=== PATIENT | male | born 1990 | race Caucasian/White ===

== ENCOUNTER 2017-01-05 22:45 | Observation (INO) | payer BC ==
[~2017-01-05] VITALS: Ht 182.1 cm; Wt 106.5 kg
[2017-01-05 22:45] VITALS: BP 155/88; PULSE 80; RESP 20; TEMP 98.2; O2SAT 99
--- NOTE | 2017-01-05 22:58 | PD ---
HPI Chief Complaint: Allergic/Adverse Reaction Time Seen by Provider: 22:49 Travel History International Travel<30 days: No Contact w/Intl Traveler<30days: No History of Present Illness HPI This is a 26-year-old male who presents to the emergency department having eaten peanuts and feeling like he was having an allergic reaction. Patient ate a chocolate that he didn't realize contained peanuts. Immediately after he started to feel like he had some labored breathing and his palms and feet were itching. He took 100 mg of Benadryl and also took some NyQuil because the Benadryl was . Currently he still feels like he's having some trouble getting his breath out and he feels very anxious. He denies any lightheadedness , abdominal pain, diarrhea or rash. [facility] Social History Tobacco Use: No Substance Use: Yes (marijuana) Allergies-Medications (Allergen,Severity, Reaction): Coded Allergies: Cashew (Verified Allergy, Severe, Nausea/Vomiting, 01/05/17) PEANUTS (Verified Allergy, Severe, 01/05/17) Pecan (Verified Allergy, Severe, Nausea/Vomiting, 01/05/17) Holcomb (Verified Allergy, Severe, Nausea/Vomiting, 01/05/17) Uncoded Allergies: CAT SALIVA (Allergy, Severe, RASH, 01/05/17) DOG SALIVA (Allergy, Severe, RASH, 01/05/17) MACADAMIA NUTS (Allergy, Severe, Nausea/Vomiting, 01/05/17) Reported Meds & Prescriptions Reported Meds & Active Scripts Active Reported Epipen 2-Steven Inj (Epinephrine) 0.3 Mg/0.3 Ml Pfpen 0.3 Mg IM ONCE PRN Valium (Diazepam) 5 Mg Tab 5 Mg PO DAILY PRN Pataday Opth 0.2% (Olopatadine HCl) 0.2 % Drops 1 Drop EACH EYE DAILY PRN Vitamin D (Cholecalciferol) 1,000 Unit Tab 1,000 Units PO DAILY Multi-Vitamin Daily (Multiple Vitamin) 1 Tab Tab 1 Tab PO DAILY Melatonin 10 Mg Tab 10 Mg PO HS PRN Aleve Arthritis (Naproxen Sodium) 220 Mg Tab 440 Mg PO EVERY OTHER DAY Levothyroxine (Levothyroxine Sodium) 112 Mcg Tab 112 Mcg PO DAILY Review of Systems Except as stated in HPI: all other systems reviewed are Neg Physical Exam Narrative GENERAL:Well appearing, no acute distress SKIN: Focused skin assessment warm and dry. HEAD: Atraumatic. Normocephalic. EYES: Pupils equal and round. No injection or drainage. ENT: Moist mucous membranes NECK: Trachea midline. CARDIOVASCULAR: Regular rate and rhythm. No murmur appreciated. RESPIRATORY: Clear to auscultation. Breath sounds equal bilaterally. GASTROINTESTINAL: Abdomen soft, non-tender, nondistended. MUSCULOSKELETAL: No obvious deformities. NEUROLOGICAL: Awake and alert. No obvious cranial nerve deficits. Moving all extremities. PSYCHIATRIC: Appropriate mood and affect; insight and judgment normal. Data Data Last Documented VS Vital Signs Date Time Temp Pulse Resp B/P Pulse Ox O2 Delivery O2 Flow Rate FiO2 01/05/17 23:45 82 18 136/74 98 Room Air 01/05/17 22:45 98.2 Orders Methylprednisolone So Succ Inj (Solumedr (01/05/17 23:00) Famotidine Inj (Pepcid Inj) (01/05/17 23:00) Sodium Chlor 0.9% 1000 Ml Inj (Ns 1000 M (01/05/17 23:00) Diphenhydramine Inj (Benadryl Inj) (01/06/17 01:30) Admit Order (Ed Use Only) (01/06/17 01:51) MDM Medical Decision Making Medical Screen Exam Complete: Yes Emergency Medical Condition: Yes Interpretation(s) Afebrile, no tachycardia, hypertensive Differential Diagnosis Acute allergic reaction, anaphylaxis Narrative Course This is a 26-year-old male who presents to the emergency department having had an acute allergic reaction to chocolate that contained peanuts. He is very well -appearing on exam but does appear pretty anxious. His mom also seems very anxious. He calls me into the room multiple times and informs me about different complaints including nose swelling and some increased itching on his hands. He was given methylprednisolone and famotidine upfront. After 2-1/2 hours for reassessment a started to complain of new symptoms. I don't think any of this reflects anaphylaxis. If anything he has a refractory allergic reaction. Plan for observation for continued Benadryl and steroids given the patient's reported severe allergy to peanuts. Diagnosis Primary Impression: Acute allergic reaction Qualified Code: T78.40XA - Acute allergic reaction, initial encounter Admitting Information Admitting Physician Requests: Observation Catrachita Amor MD Jan 05, 2017 22:58
[2017-01-05] MEDS ORDERED: FAMOTIDINE 20 MG/2 ML VIAL IV PUSH ONE (23:00)
[2017-01-05] MEDS ORDERED: methylPREDNISolone SOD SUCC 125 MG/2 ML VIAL IV PUSH ONE (23:00)
[2017-01-05] MEDS ORDERED: SODIUM CHLOR 0.9% 1000 ML INJ 1,000 ML IV ONE (23:00)
[2017-01-05 23:15] VITALS: BP 143/84; PULSE 78; RESP 18; O2SAT 98
[2017-01-05] MEDS ORDERED: EPIP0.3I IM (23:23)
[2017-01-05] MEDS ORDERED: PATA0.2S EACH EYE (23:23)
[2017-01-05] MEDS ORDERED: MULT-65 PO (23:23)
[2017-01-05] MEDS ORDERED: LEVO112T2 PO (23:23)
[2017-01-05] MEDS ORDERED: ALEV220T14 PO (23:23)
[2017-01-05] MEDS ORDERED: MELA1TAB18 PO (23:23)
[2017-01-05] MEDS ORDERED: DIAZ5 PO (23:23)
[2017-01-05] MEDS ORDERED: VITA100064 PO (23:23)
[2017-01-05 23:45] VITALS: BP 136/74; PULSE 82; RESP 18; O2SAT 98
[2017-01-06] VITALS (7 sets, daily range): BP systolic 106–141; BP diastolic 66–94; PULSE 64–78; RESP 18–20; TEMP 96.8–97.4; O2SAT 95–99
[2017-01-06] MEDS ORDERED: diphenhydrAMINE HCL 50 MG/ML VIAL IV PUSH ONE ×2 (01:30→08:00)
[2017-01-06] MEDS ORDERED: BISACODYL 10 MG SUPP RECTAL PRN (04:15)
[2017-01-06] MEDS ORDERED: ONDANSETRON HCL 4 MG/2 ML VIAL IVP PRN (04:15)
[2017-01-06] MEDS ORDERED: MAGNESIUM HYDROXIDE SUSP 30 ML CUP PO PRN (04:15)
[2017-01-06] MEDS ORDERED: SODIUM CHLORIDE 0.9% FLUSH 10 ML FLUSH IV FLUSH PRN (04:15)
[2017-01-06] MEDS ORDERED: SODIUM CHLOR 0.9% 1000 ML INJ 1,000 ML IV SCH (04:15)
[2017-01-06] MEDS ORDERED: diphenhydrAMINE HCL 50 MG/ML VIAL IM PRN (04:15)
[2017-01-06] MEDS ORDERED: SENNOSIDES 8.6 MG TAB PO PRN (04:15)
[2017-01-06] MEDS ORDERED: EPINEPHrine HCL (1:1000) 1 MG/ML VIAL IM PRN (04:15)
[2017-01-06] MEDS ORDERED: NALOXONE HCL 0.4 MG/ML AMP IV PRN (04:15)
[2017-01-06] MEDS ORDERED: LACTULOSE SYRUP 20 GM/30 ML CUP PO PRN (04:15)
[2017-01-06] MEDS ORDERED: FAMOTIDINE 20 MG/2 ML VIAL IV PUSH SCH (08:00)
[2017-01-06] MEDS ORDERED: methylPREDNISolone SOD SUCC 40 MG/1 ML VIAL IV PUSH ONE (08:00)
[2017-01-06] MEDS ORDERED: DOCUSATE SODIUM 50 MG/SENNA 8.6 MG TAB PO SCH (09:00)
[2017-01-06] MEDS ORDERED: SODIUM CHLORIDE 0.9% FLUSH 10 ML FLUSH IV FLUSH SCH (09:00)
--- NOTE | 2017-01-06 11:55 | MH ---
cc: BRANDO NATH MD DATE OF ADMISSION: 01/06/2017 DATE OF ADMISSION 01/05/2017 CHIEF COMPLAINT Allergic reaction to peanuts HISTORY OF PRESENT ILLNESS This is 26-year male with past medical-surgical history significant for hypothyroidism. ALLERGIES Allergy to PEANUTS, CASHEWS, PECANS, WALNUTS, CAT SALIVA, DOG SALIVA, MACADAMIA NUTS. PAST MEDICAL HISTORY: History of hypothyroidism. History of muscle spasms. Uses medical marijuana. HISTORY OF PRESENT ILLNESS Per the patients report came to the emergency room at [facility] having eaten Peanuts and feeling like, have been having allergic reaction. He ate a chocolate that he did not realize contained peanuts and immediately after starting he felt like he had some labored breathing. He is palm and feet are itching. He took 100 mg of Benadryl and also took some NyQuil before. He took Benadryl. Currently he is feeling much better. He said he has some shortness of breath, fever, but when examined the patient he denied any shortness of breath, any Throat, choking, any difficulty breathing, any swelling of the tongue or lips or any in the rash or any other symptoms. He said he is 100% recovered after the treatment of Solu-Medrol 40 mg IV and also Benadryl 50 mg IV and also he got famotidine 20 mg IV and another dose in my office of Solu-Medrol 125 mg IV. He feels much better after that and he wants to go home, other than that nothing significant. PAST MEDICAL HISTORY: Past medical history as dictated above. PAST SURGICAL HISTORY: Past surgical history significant for right ankle cyst removed. SOCIAL HISTORY Smoke cigars and he uses medical marijuana for muscle spasm per patient report. Denies any alcohol drinking. 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 FAMILY HISTORY: Significant for hypothyroidism. MEDICATIONS: 1. Epipen two pack injection 0.3 mg IM once a p.r.n. allergic reaction 2. Valium 5 mg p.o. daily 3. <<3:44>> 1 drop each eye daily. 4. Vitamin D 1000 units p.o. daily 5. multivitamin p.o. daily 6. <<3:53>> 10 mg p.o. at bedtime 7. Aleve 440 mg every other day. 8. Levothyroxine 112 mcg p.o. daily. REVIEW OF SYSTEMS All review of systems are negative at the time of examination the patient does not have any symptoms or complaints. PHYSICAL EXAMINATION IN GENERAL: This is 26-year male sitting on the bed not in acute distress. VITAL SIGNS: Temperature 96.8, heart rate 64, respiration 20, blood pressure 106/66, O2 saturation 97% room air. HEAD, EYES, EARS, NOSE, AND THROAT: Normocephalic, atraumatic. EOMI. Oral mucosa moist. NECK: Neck is supple. No visible thyromegaly or neck mass. EXTREMITIES: Full range of motion of all extremities. NEUROLOGIC: Awake, alert, oriented x4. No focal deficits. SKIN: Warm and dry. PSYCHIATRIC: The patient is cooperative mood, affect is normal. LABORATORY DATA None. RADIOLOGY None. ASSESSMENT/PLAN This is a 26-year male status post her acute allergic reaction secondary to peanut ingestion. The patient is 100% better now and wants to go home. Okay to discharge the patient home today. Brando Nath MD EA/cuco /10:54 AM /11:39 AM
== END 2017-01-06 12:21 | disposition home or self-care (01) ==
LOC: PHED 22:45 → PHEDA 01-06 01:52 → PH3A 01-06 02:47
PROVIDERS: ADMIT Family Medicine; ATTEND Family Medicine
DX: T78.40XA Allergy, unspecified, initial encounter (principal); Z91.010 Allergy to peanuts; F12.10 Cannabis abuse, uncomplicated; Z79.899 Other long term (current) drug therapy; E03.9 Hypothyroidism, unspecified; M62.838 Other muscle spasm; F17.200 Nicotine dependence, unspecified, uncomplicated
CPT/HCPCS: 96361; 96374; 96375; 99285; G0378; J1200; J2920; J2930; J7030